=== PATIENT | female | born 1960 | race Caucasian/White ===

== ENCOUNTER → 2018-08-06 | Outpatient (CLI) | payer OTHER ==
[~2018-08-06] MED LIST: CALC-18 PO; CHOL100058 PO; IBU800 PO; LOSA25TA57 PO; METR-1 PO; MULT-1335 PO; MULTIVITAMIN; NIA500 PO
--- NOTE | 2018-08-06 17:15 | RADIOLOGY IMAGING REPORT ---
[place] [facility] [place] NAME: ANDRZEJ RG : [id number] MR: [id number]: [id number] EXAM DATE: [id number] ORDERING PHYSICIAN: SIRI HENDERSON TECHNOLOGIST: Nadia Mcgregor PROCEDURE:BILATERAL DIGITAL SCREENING MAMMOGRAM WITH CAD ASSISTED INTERPRETATION & 3D TOMOSYNTHESIS COMPARISON:Prior mammograms 02/22/17, 10/27/15, 09/17/14, 07/10/12. INDICATIONS:SCREENING FINDINGS: There are areas of scattered fibroglandular density throughout the breasts. The parenchymal pattern has remained stable allowing for difference in mammographic technique & patient positioning. DIAGNOSTIC CATEGORY 1--NEGATIVE. RECOMMENDATIONS: ROUTINE MAMMOGRAM AND CLINICAL EVALUATION. IMPRESSION: BIRADS 1: Negative. No significant abnormality is seen. Dictated by: Carmela Justin M.D. on 08/06/2018 at 8:58 Transcribed by: MORGAN on 08/06/2018 at 9:37 Approved by: Carmela Justin M.D. on 08/06/2018 at 17:13 [facility]
== END ==
LOC: MAMO 02:12
PROVIDERS: ATTEND Family Medicine
DX: Z12.31 Encounter for screening mammogram for malignant neoplasm of breast (principal)
CPT/HCPCS: 77063; 77067